=== PATIENT | male | born 1960 | race Hispanic/Latino ===

== ENCOUNTER 2023-12-10 14:09 | Emergency (ER) | payer SELFPAY ==
[2023-12-10 14:09] VITALS: BMI 33.5
[2023-12-10 14:11] VITALS: BP 109/68
[2023-12-10 14:17] LABS: Glucose - Point of Care 480 mg/dl (70-99)
[2023-12-10 14:39] LABS: % Basophils 0.3 % (0-2); % Immature Granulocytes 0.5 % (0-0.5); % Lymphocytes 19.9 % (20.5-51.1); % Monocytes 7.9 % (1.7-9.3); % Neutrophils 69.4 % (42.2-75.2); Absolute Eosinophils 0.2 10^3/uL (0-0.7); Absolute Lymphocytes 1.5 10^3/uL (1.2-3.4); Absolute Monocytes 0.6 10^3/uL (0.1-0.6); Absolute Neutrophils 5.1 10^3/uL (1.4-6.5); Hemoglobin 14.5 g/dL (13.0-18.0); Mean Corp Hgb Conc. 35.4 g/dL (33.0-37.0); Mean Corpuscular Hgb 31.7 pg (27.0-31.0); Mean Corpuscular Volume 89.5 fL (80.0-94.0); Mean Platelet Volume 11.1 fL (7.4-10.4); Nucleated Red Blood Cells % 0 % (-); Platelet Count 208 10^3/uL (130-400); Red Blood Cell Count 4.58 10^6/uL (4.70-6.10); Red Cell Dist. Width 13.1 % (11.5-14.5); White Blood Cell Count 7.4 10^3/uL (4.8-10.8)
[2023-12-10 15:00] VITALS: BP 108/77
--- NOTE | 2023-12-10 15:10 | ED.GENMED ---
History of Present Illness
<Amberly Sousa NP - Last Filed: 12/10/23 20:30>
General
Chief Complaint: Blood Sugar Problem
Source: patient
Exam Limitations: none
Time Seen by Provider: 12/10/23 14:51
Nursing documentation reviewed up to this point in time: agreed with
History of Present Illness
History of Present Illness:
Patient states he was sent to ED by Dr. Camacho's office. He is unsure why. States he was inpatient at [facility] 11/06-11/08 for dehydration and then fluid overload. He was seen by his PCP today and advised to follow up with Dr. Camacho for management of his
cardiac meds. He states he went to office and then was brought to ED by staff. I spoke with office and according to office he was pale and SOB and decision was made to send to ED. He is aswake and alert in ED. States he feels well and does not
feel that he needs to be here.
Past History
<Amberly Sousa NP - Last Filed: 12/10/23 20:30>
Past History
ED Past Medical History: Arrthythmia (Atrial fibrillation with rapid response), CAD, CHF, GERD, HTN, NIDDM (diet controled), [place], Psychiatric (Generalized anxiety disorder), Other (Noncompliance, acute renal insufficiency May 2022, obstructive
sleep apnea, hypotension) and Other (Diabetes, obstructive sleep apnea, dizziness, vertigo, anxiety, shoulder dislocation)
ED Past Surgical History: Orthopedic (right rotator cuff surgery)
Social History
Tobacco: Former smoker
Alcohol: Occasional
Drug: Other (Methamphetamine exposure, benzodiazepine abuse)
Personal: Single
Living: alone
Employment: Employed (construction)
Family History
Family History: Diabetes and CAD
Review of Systems
<Amberly Sousa NP - Last Filed: 12/10/23 20:30>
Review of Systems
Allergies reviewed?: Yes
All Other Systems: ROS reviewed and negative except as documented in HPI and ROS
Constitutional: Reports no symptoms
EENT: Reports no symptoms
Respiratory: Reports no symptoms
Cardiac: Reports no symptoms
ABD/GI: Reports no symptoms
: Reports no symptoms
Musculoskeletal: Reports no symptoms
Skin: Reports no symptoms
Neurological: Reports no symptoms
Psychiatric: Reports no symptoms
Phy Exam
<Amberly Sousa GUSSET RIPPER - Last Filed: 12/10/23 20:30>
General Physical Exam
General Presentation: well appearing and no apparent distress
General age: appears stated age
General Skin: warm and dry
General Habitus: normal
General Mental: alert
Cardiovascular Exam
Cardiovascular Exam: regular rate/rhythm and no edema
Pulmonary Exam
Pulmonary Exam: lungs clear and no respiratory distress
Gastrointestinal Exam
Gastrointestinal Exam: normal bowel sounds, non tender, soft and non distended
Neurological Exam
Neurological Exam: alert, oriented x3, CN II-XII intact, no motor deficits, no sensory deficits, speech normal and normal gait
Musculoskeletal Exam
Musculoskeletal Exam: full ROM and neuro vasc intact
Skin Exam
Skin Exam: normal color, warm/dry and no rash
Psychiatric Exam
Psychiatric Exam: normal mood/affect
Course
<Amberly Sousa GUSSET RIPPER - Last Filed: 12/10/23 20:30>
Orders/Labs/Results
Orders:
Orders
12/10/23 14:21
Electrocardiogram (*1) Urgent
Reason for Study: Fatigue / Weakness
12/10/23 14:22
EKG- Treatment ONCE
12/10/23 14:31
Complete Blood Count/With Diff Urgent
Comprehensive Metabolic Panel Urgent
Digoxin Urgent
12/10/23 15:36
CR Chest - 2 Views Urgent
Comment:
Reason For Exam: sob
12/10/23 15:40
Insulin Aspart [NOVOLOG vial] 10 units SC NOW STA
12/10/23 15:52
Add On- LAB Urgent
Tests Added?: digoxin
12/10/23 16:08
Add On- LAB Urgent
Tests Added?: beta hydroxyburturate
12/10/23 16:14
Venous Blood Gas Urgent
%Oxygen/Room Air: ra
12/10/23 17:29
Bedside Glucose- Treatment ONCE
Abnormal Lab Results
12/10/23 12/10/23 12/10/23
14:15 14:31 16:14
RBC 4.58 L 10^6/uL
(4.70-6.10)
MCH 31.7 H pg
(27.0-31.0)
MPV 11.1 H fL
(7.4-10.4)
Lymphocytes % 19.9 L %
(20.5-51.1)
VBG pCO2 27 L mmHg
(35-48)
VBG pO2 166 H mmHg
(30-50)
VBG HCO3 16.3 L mmol/L
(22-27)
Sodium 131 L mmol/L
(135-145)
Carbon Dioxide 18 L mmol/L
(22-30)
BUN 28 H mg/dl
(9-20)
Glucose 456 H* mg/dl
(70-99)
Alkaline Phosphatase 158 H U/L
(38-126)
Digoxin 0.4 L ng/ml
(0.8-2.0)
POC Glucose 480 H* mg/dl
(70-99)
12/10/23
17:26
RBC
MCH
MPV
Lymphocytes %
VBG pCO2
VBG pO2
VBG HCO3
Sodium
Carbon Dioxide
BUN
Glucose
Alkaline Phosphatase
Digoxin
POC Glucose 181 H mg/dl
(70-99)
12/10/23 14:31
12/10/23 14:31
Vital Signs
Initial and Last Documented VS:
Initial Vital Signs
Temp Pulse Resp BP Pulse Ox
97.7 F 90 18 109/68 98
12/10/23 14:11 12/10/23 14:11 12/10/23 14:11 12/10/23 14:11 12/10/23 14:11
Last Documented Vital Signs
Temp Pulse Resp BP Pulse Ox
97.7 F 84 24 99/57 95
12/10/23 14:11 12/10/23 18:00 12/10/23 16:45 12/10/23 17:00 12/10/23 17:15
<Spenser Helms, DO - Last Filed: 12/10/23 16:10>
Orders/Labs/Results
Orders:
Orders
12/10/23 14:21
Electrocardiogram (*1) Urgent
Reason for Study: Fatigue / Weakness
12/10/23 14:22
EKG- Treatment ONCE
12/10/23 14:31
Complete Blood Count/With Diff Urgent
Comprehensive Metabolic Panel Urgent
Digoxin Urgent
12/10/23 15:36
CR Chest - 2 Views Urgent
Comment:
Reason For Exam: sob
12/10/23 15:40
Insulin Aspart [NOVOLOG vial] 10 units SC NOW STA
12/10/23 15:52
Add On- LAB Urgent
Tests Added?: digoxin
12/10/23 16:08
Add On- LAB Urgent
Tests Added?: beta hydroxyburturate
12/10/23 16:14
Venous Blood Gas Urgent
%Oxygen/Room Air: ra
12/10/23 17:29
Bedside Glucose- Treatment ONCE
Abnormal Lab Results
12/10/23 12/10/23 12/10/23
14:15 14:31 16:14
RBC 4.58 L 10^6/uL
(4.70-6.10)
MCH 31.7 H pg
(27.0-31.0)
MPV 11.1 H fL
(7.4-10.4)
Lymphocytes % 19.9 L %
(20.5-51.1)
VBG pCO2 27 L mmHg
(35-48)
VBG pO2 166 H mmHg
(30-50)
VBG HCO3 16.3 L mmol/L
(22-27)
Sodium 131 L mmol/L
(135-145)
Carbon Dioxide 18 L mmol/L
(22-30)
BUN 28 H mg/dl
(9-20)
Glucose 456 H* mg/dl
(70-99)
Alkaline Phosphatase 158 H U/L
(38-126)
Digoxin 0.4 L ng/ml
(0.8-2.0)
POC Glucose 480 H* mg/dl
(70-99)
12/10/23
17:26
RBC
MCH
MPV
Lymphocytes %
VBG pCO2
VBG pO2
VBG HCO3
Sodium
Carbon Dioxide
BUN
Glucose
Alkaline Phosphatase
Digoxin
POC Glucose 181 H mg/dl
(70-99)
12/10/23 14:31
12/10/23 14:31
Vital Signs
Initial and Last Documented VS:
Initial Vital Signs
Temp Pulse Resp BP Pulse Ox
97.7 F 90 18 109/68 98
12/10/23 14:11 12/10/23 14:11 12/10/23 14:11 12/10/23 14:11 12/10/23 14:11
Last Documented Vital Signs
Temp Pulse Resp BP Pulse Ox
97.7 F 84 24 99/57 95
12/10/23 14:11 12/10/23 18:00 12/10/23 16:45 12/10/23 17:00 12/10/23 17:15
<Amberly Sousa GUSSET RIPPER - Last Filed: 12/10/23 20:30>
*Critical Care Note
Total Time (30-74mins, 75-104mins- exclusive of procedures): Not Applicable
<Amberly Sousa NP - Last Filed: 12/10/23 20:30>
Update Note
Update Note:
Nonfasting BS on admissin 457. Given 10mg Novolog sq. Repeat BS 188. No other concerning findings on exam today. He is discharged home. Will follow up wtihPCP and cardiology as requested.
ED Attending Note
<Amberly Sousa GUSSET RIPPER - Last Filed: 12/10/23 20:30>
-
Portions of this chart may have been created with voice recognition software.� Occasional wrong word or��sound alike� substitutions may have occurred due to the inherent limitations of voice recognition software.
<Spenser Helms DO - Last Filed: 12/10/23 16:10>
ED Attending Note
Patient seen and examined by attending physician: Yes
I performed the substantive portion of visit, reviewed & personally made and approve the management plan that is documented in note by myself or JAZMIN.: Yes
ED Attending Note:
seen with GUSSET RIPPER
agree with a/p
labs noted
will check cxr, ekg, bHB, VBG
follow closely
Discharge Plan
Departure
Patient Disposition: Home (Routine Discharge)
Date of Disposition: 12/10/23
Time of Disposition: 17:56
Patient with high blood pressure during this ER visit?: No
Condition: Good
Covid-19: Not Applicable
Discharge Problem:
Weakness, Hyperglycemia, Diabetes
Instructions: Type 2 Diabetes (DC)
Prescriptions:
No Action
spironolactone 25 mg Tablet
12.5 mg PO DAILY 30 Days Qty: 15 0RF
Eliquis 5 mg Tablet
5 mg PO BID 30 Days Qty: 60 0RF
sertraline 50 mg Tablet
50 mg PO DAILY 30 Days Qty: 30 0RF
atorvastatin 40 mg tablet
40 mg PO DAILY
carvedilol 6.25 mg tablet
6.25 mg PO BID
lisinopril 5 mg tablet
5 mg PO DAILY
digoxin 125 mcg (0.125 mg) tablet
125 mcg PO DAILY
zolpidem 5 mg tablet
5 mg PO HS
Patient Comments:
12/10/2023: last filled 12/07/23, 14 tabs for 14 days from [facility]
lorazepam 1 mg tablet
1 mg PO HS
Patient Comments:
12/10/2023: last filled 12/07/23, 30 tabs for 15 days from [facility]
insulin lispro 100 unit/mL solution
12 unit SC AC
insulin glargine [Lantus Solostar U-100 Insulin] 100 unit/mL (3 mL) Insulin Pen
12 unit SC HS
cholecalciferol (vitamin D3) 50 mcg (2,000 unit) tablet
150 mcg PO DAILY
Referrals:
Cira Boothe DO [Family Provider] - Follow up in 2-3 days
Interventions
Interventions:
*Risk Screen - Suicide Last Done: 12/10/23 14:15
*General Assessment Last Done: 12/10/23 14:15
*Neglect/Abuse Screening Last Done: 12/10/23 14:15
ED- Fall Risk Assessment Last Done: 12/10/23 16:30
*ED COVID-19 Vaccine History Last Done: 12/10/23 15:38
*Nursing Disposition Last Done: 12/10/23 18:41
ED- Neurological Assessment Last Done: 12/10/23 16:30
Discharge Date and Time
Discharge Date/Time: 12/10/23 18:42
Print Language: TRINIDADIAN
[2023-12-10 15:13] LABS: ALT (SGPT) 26 U/L (0-50); AST (SGOT) 27 U/L (17-59); Albumin 3.7 g/dl (3.5-5.0); Alkaline Phosphatase 158 U/L (38-126); Blood Urea Nitrogen 28 mg/dl (9-20); Calcium 8.6 mg/dl (8.4-10.2); Carbon Dioxide 18 mmol/L (22-30); Chloride 102 mmol/L (98-107); Glucose 456 mg/dl (70-99); Potassium 4.6 mmol/L (3.5-5.1); Sodium 131 mmol/L (135-145); Total Bilirubin 0.5 mg/dl (0.2-1.3); Total Protein 6.3 g/dl (6.3-8.2); eGFR > 60.00
[2023-12-10] MEDS: NOVOLOG vial 10 UNITS SC (15:58)
[2023-12-10 16:00] VITALS: BP 105/75
[2023-12-10 16:40] LABS: Venous Blood Gas B.E. -7.1 mmol/L (-4 to +4); Venous Blood Gas HCO3 16.3 mmol/L (22-27); Venous Blood Gas O2 Sat % 99.3 %; Venous Blood Gas pCO2 27 mmHg (35-48); Venous Blood Gas pH 7.39 (7.32-7.43); Venous Blood Gas pO2 166 mmHg (30-50)
[2023-12-10 17:00] VITALS: BP 99/57
[2023-12-10 17:03] LABS: Digoxin 0.4 ng/ml (0.8-2.0)
[2023-12-10 17:27] LABS: Glucose - Point of Care 181 mg/dl (70-99)
== END 2023-12-10 18:42 | disposition home or self-care (01) ==
LOC: EMR 14:09
PROVIDERS: Emergency Medicine; EMERGENCY PHYSICIAN Emergency Medicine; FAMILY PHYSICIAN Family Medicine
DX: E11.65 Type 2 diabetes mellitus with hyperglycemia (principal); R53.1 Weakness; R06.02 Shortness of breath; R53.83 Other fatigue; F41.1 Generalized anxiety disorder; I48.91 Unspecified atrial fibrillation; I25.10 Atherosclerotic heart disease of native coronary artery without angina pectoris; I11.0 Hypertensive heart disease with heart failure; I50.9 Heart failure, unspecified; G47.33 Obstructive sleep apnea (adult) (pediatric); K21.9 Gastro-esophageal reflux disease without esophagitis; I25.2 Old myocardial infarction; Z87.891 Personal history of nicotine dependence; Z79.01 Long term (current) use of anticoagulants
CPT/HCPCS: 99284; 96372; 71046; 80053; 80162; 82805; 82962; 85025; 93005